=== PATIENT | male | born 1965 | race Caucasian/White ===

== ENCOUNTER → 2017-02-03 | Outpatient (CLI) | payer OTHER | LOC: M OUTALCOH 12:56 | PROVIDERS: ATTEND Psychiatry & Neurology Psychiatry | DX: F10.20 Alcohol dependence, uncomplicated (principal) ==

== ENCOUNTER 2017-02-17 14:00 | Outpatient (RCR) | payer OTHER | END 2017-02-27 | LOC: M OUTALCOH 14:00 | PROVIDERS: ATTEND Psychiatry & Neurology Psychiatry | DX: F12.10 Cannabis abuse, uncomplicated (principal); F10.20 Alcohol dependence, uncomplicated; F17.201 Nicotine dependence, unspecified, in remission ==

== ENCOUNTER → 2017-03-30 | Outpatient (RCR) | payer OTHER | LOC: M OUTALCOH 03-02 12:33 | PROVIDERS: ATTEND Psychiatry & Neurology Psychiatry | DX: F10.20 Alcohol dependence, uncomplicated (principal); F17.200 Nicotine dependence, unspecified, uncomplicated; F12.10 Cannabis abuse, uncomplicated ==

== ENCOUNTER 2017-04-27 16:00 | Outpatient (RCR) | payer OTHER | END 2017-04-29 | LOC: M OUTALCOH 16:00 | PROVIDERS: ATTEND Psychiatry & Neurology Psychiatry | DX: Z13.9 Encounter for screening, unspecified (principal); F10.20 Alcohol dependence, uncomplicated; F12.10 Cannabis abuse, uncomplicated; F17.200 Nicotine dependence, unspecified, uncomplicated ==

== ENCOUNTER 2017-05-24 16:00 | Outpatient (RCR) | payer OTHER | END 2017-05-30 | LOC: M OUTALCOH 16:00 | PROVIDERS: ATTEND Psychiatry & Neurology Psychiatry | DX: F12.10 Cannabis abuse, uncomplicated (principal); F10.20 Alcohol dependence, uncomplicated; F17.200 Nicotine dependence, unspecified, uncomplicated ==

== ENCOUNTER 2017-06-01 16:00 | Outpatient (RCR) | payer OTHER | END 2017-06-30 | LOC: M OUTALCOH 16:00 | PROVIDERS: ATTEND Psychiatry & Neurology Psychiatry | DX: F10.20 Alcohol dependence, uncomplicated (principal); F12.10 Cannabis abuse, uncomplicated; F17.200 Nicotine dependence, unspecified, uncomplicated ==

== ENCOUNTER → 2020-08-13 | Outpatient (REF) | payer OTHER ==
[2020-08-13 19:35] LABS: OSMOLALITY URINE 328 MOSM/KG (500-800)
[2020-08-13 19:45] LABS: SODIUM,RANDOM URINE 29 MEQ/L
[2020-08-13 20:04] LABS: CORTISOL BASELINE 26.2 UG/DL (4.3-22.4); FREE T4 1.12 NG/DL (0.76-1.46); THYROID STIMULATING HORMONE 1.14 uIU/ML (0.358-3.740)
== END ==
LOC: M LAB REF 17:07
PROVIDERS: ATTEND Internal Medicine Nephrology
DX: E87.1 Hypo-osmolality and hyponatremia (principal)

== ENCOUNTER → 2023-09-21 | Outpatient (CLI) | payer OTHER | LOC: M PLAIMG 10:32 | PROVIDERS: ATTEND Otolaryngology | DX: K13.21 Leukoplakia of oral mucosa, including tongue (principal) ==

== ENCOUNTER 2023-11-22 09:58 | Day surgery (SDC) | payer OTHER ==
[~2023-11-22] VITALS: Ht 177.8 cm; Wt 78.9 kg
[~2023-11-22 09:58] MED LIST: AMLO1TAB25 PO; CARV6.25 PO; FLUT12HF2; LISI40TA4 PO; LR 1,000 ML IV SCH; NICO1DIS12
[2023-11-22] MEDS ORDERED: METHYLENE BLUE 0.5% (5MG/ML) 10 ML AMP (PROVAYBLUE) As Ordered ONE (12:54)
[2023-11-22] MEDS ORDERED: LIDOCAINE W/EPINEPHRINE 1% 20ML VIAL As Ordered ONE (12:54)
[2023-11-22] MEDS ORDERED: fentaNYL 100 MCG/2 ML INJECTION As Ordered ONE (13:40)
[2023-11-22] MEDS ORDERED: ROCURONIUM BROMIDE 50MG/5ML VIAL As Ordered ONE (13:40)
[2023-11-22] MEDS ORDERED: propofoL 200 MG/20 ML VIAL As Ordered ONE (13:40)
[2023-11-22] MEDS ORDERED: ONDANSETRON 4MG 2ML VIAL As Ordered ONE (13:40)
[2023-11-22] MEDS ORDERED: dexmedeTOMIDine (4MCG/ML)200MCG/50ML BTL (PRECEDEX) As Ordered ONE (13:40)
[2023-11-22] MEDS ORDERED: ACETAMINOPHEN 1000MG 100ML IV BAG As Ordered ONE (13:40)
[2023-11-22] MEDS ORDERED: SUGAMMADEX SODIUM 500 MG/5 ML VIAL (BRIDION) As Ordered ONE (13:40)
[2023-11-22] MEDS ORDERED: LIDOCAINE 2% 100MG/5ML SDV (FOR ANES.) As Ordered ONE (13:40)
[2023-11-22] MEDS ORDERED: MIDAZOLAM INJ 2MG/2ML VIAL As Ordered ONE (13:40)
[2023-11-22] MEDS ORDERED: GLYCOPYRROLATE INJ 0.2 MG/ML 2 ML VIAL As Ordered ONE (13:46)
[2023-11-22] MEDS ORDERED: PHENYLephrine 500MCG 5ML (100MCG/ML) SYRINGE As Ordered ONE (14:21)
[2023-11-22] MEDS ORDERED: METOCLOPRAMIDE INJ 10MG/2ML VIAL IV PRN (16:30)
[2023-11-22] MEDS ORDERED: LR 1,000 ML IV SCH ×2 (16:30)
[2023-11-22] MEDS ORDERED: ONDANSETRON 4MG 2ML VIAL IV PRN ×2 (16:30)
[2023-11-22] MEDS ORDERED: oxyCODONE 5MG TAB PO PRN (16:30)
[2023-11-22] MEDS ORDERED: fentaNYL 100 MCG/2 ML INJECTION IV PRN ×2 (16:30)
[2023-11-22] MEDS: oxyCODONE 5MG TAB PO PRN ×2 (16:37→17:09)
[2023-11-22 17:00] VITALS: BP 144/96; TEMP 98.8; O2SAT 99
== END 2023-11-22 17:29 | disposition home or self-care (01) ==
LOC: M SDC 09:58
PROVIDERS: ATTEND Otolaryngology
DX: K14.8 Other diseases of tongue (principal); K13.21 Leukoplakia of oral mucosa, including tongue; G47.33 Obstructive sleep apnea (adult) (pediatric); I10 Essential (primary) hypertension; J44.9 Chronic obstructive pulmonary disease, unspecified; Z79.899 Other long term (current) drug therapy; Z79.51 Long term (current) use of inhaled steroids; F17.219 Nicotine dependence, cigarettes, with unspecified nicotine-induced disorders
CPT/HCPCS: 31536; 41599; 70260; 88305; J0131; J1100; J2250; J2371; J2405; J3010; Q9968

== ENCOUNTER 2024-07-19 08:20 | Day surgery (SDC) | payer OTHER ==
[~2024-07-19] VITALS: Ht 177.8 cm; Wt 83.2 kg
[~2024-07-19 08:20] MED LIST changes: -LR 1,000 ML IV SCH
[2024-07-19] MEDS ORDERED: LR 1,000 ML IV SCH ×2 (08:45→11:25)
[2024-07-19] MEDS ORDERED: ROCURONIUM BROMIDE 50MG/5ML VIAL As Ordered ONE (09:22)
[2024-07-19] MEDS ORDERED: ONDANSETRON 4MG 2ML VIAL As Ordered ONE (09:22)
[2024-07-19] MEDS ORDERED: LIDOCAINE 2% 100MG/5ML SDV (FOR ANES.) As Ordered ONE (09:22)
[2024-07-19] MEDS ORDERED: propofoL 200 MG/20 ML VIAL As Ordered ONE (09:22)
[2024-07-19] MEDS ORDERED: ACETAMINOPHEN 1000MG 100ML IV BAG As Ordered ONE (09:22)
[2024-07-19] MEDS ORDERED: SUGAMMADEX SODIUM 500 MG/5 ML VIAL (BRIDION) As Ordered ONE (09:22)
[2024-07-19] MEDS ORDERED: fentaNYL 100 MCG/2 ML INJECTION As Ordered ONE (09:23)
[2024-07-19] MEDS ORDERED: MIDAZOLAM INJ 2MG/2ML VIAL As Ordered ONE (09:23)
[2024-07-19] MEDS: OXYMETAZOLINE 0.05% NASAL SPRAY (AFRIN) As Ordered ONE (10:27)
[2024-07-19] MEDS: LIDOCAINE W/EPINEPHRINE 1% 20ML VIAL As Ordered ONE (11:05)
[2024-07-19] MEDS ORDERED: fentaNYL 100 MCG/2 ML INJECTION IV PRN (11:25)
[2024-07-19] MEDS ORDERED: HYDROMORPHONE HCL 0.5 MG/ 0.5 ML SYRINGE IV PRN (11:25)
[2024-07-19] MEDS ORDERED: ONDANSETRON 4MG 2ML VIAL IV PRN (11:25)
[2024-07-19] MEDS ORDERED: oxyCODONE 5MG TAB PO PRN (11:25)
[2024-07-19 12:20] VITALS: BP 131/91; TEMP 97.4; O2SAT 97
== END 2024-07-19 12:39 | disposition home or self-care (01) ==
LOC: M SDC 08:20
PROVIDERS: ATTEND Otolaryngology
DX: K13.29 Other disturbances of oral epithelium, including tongue (principal); K12.1 Other forms of stomatitis; R23.4 Changes in skin texture; Z91.013 Allergy to seafood; Z79.899 Other long term (current) drug therapy; Z87.891 Personal history of nicotine dependence
CPT/HCPCS: 41100; 41108; 88305; J0131; J1100; J2250; J2405; J3010

== ENCOUNTER → 2025-02-14 | Outpatient (CLI) | payer OTHER ==
[~2025-02-14] VITALS: Ht 180.3 cm; Wt 77.7 kg
[~2025-02-14] MED LIST changes: +BICA50TA4; +DULC5TAB PO; +HYDR-3713; +HYDR-3713 PO; +IBUP-1114; +MIRA3350 PO; +NARC1SPR NARES; +OXYC-517 PO; +SENN-186 PO
[2025-02-14 14:51] VITALS: BP 117/71; O2SAT 97
== END ==
LOC: M PAL 14:17
PROVIDERS: ATTEND Physician Assistant
DX: Z51.5 Encounter for palliative care (principal); C61 Malignant neoplasm of prostate; C79.51 Secondary malignant neoplasm of bone; C78.7 Secondary malignant neoplasm of liver and intrahepatic bile duct; R52 Pain, unspecified; Z79.891 Long term (current) use of opiate analgesic; Z72.89 Other problems related to lifestyle; Z79.899 Other long term (current) drug therapy; Z79.1 Long term (current) use of non-steroidal anti-inflammatories (NSAID); Z91.018 Allergy to other foods; Z91.013 Allergy to seafood
CPT/HCPCS: 99205; G2212

== ENCOUNTER → 2025-02-28 | Outpatient (CLI) | payer OTHER ==
[~2025-02-28] VITALS: Ht 180.3 cm; Wt 77.0 kg
[~2025-02-28] MED LIST changes: +TRAZ-252 PO
[2025-02-28 14:14] VITALS: BP 143/97; O2SAT 97
== END ==
LOC: M PAL 14:03
PROVIDERS: ATTEND Physician Assistant
DX: Z51.5 Encounter for palliative care (principal); C61 Malignant neoplasm of prostate; C79.51 Secondary malignant neoplasm of bone; C22.9 Malignant neoplasm of liver, not specified as primary or secondary; Z79.891 Long term (current) use of opiate analgesic; Z91.013 Allergy to seafood; Z79.899 Other long term (current) drug therapy

== ENCOUNTER → 2025-05-16 | Outpatient (CLI) | payer OTHER ==
[~2025-05-16] VITALS: Ht 180.3 cm; Wt 74.9 kg
[~2025-05-16] MED LIST changes: +ATIV1TAB10 PO; +ATIV1TAB7 PO; -BICA50TA4; +BICA50TA4 PO; +DARO300T PO; -IBUP-1114; +IBUP-1114 PO; +LISI40TA10 PO; -LISI40TA4 PO; +MELO15TA28 PO; +MUSHROOM PO; +ONDA-284 PO; +OXYC-1 PO; +OXYC10TA12 PO; +PROC5TAB57 PO; +TRAZ-186 PO
[2025-05-16 14:02] VITALS: BP 146/90; O2SAT 99
== END ==
LOC: M PAL 13:30
PROVIDERS: ATTEND Physician Assistant
DX: Z51.5 Encounter for palliative care (principal); C61 Malignant neoplasm of prostate; C79.51 Secondary malignant neoplasm of bone; C78.7 Secondary malignant neoplasm of liver and intrahepatic bile duct; R52 Pain, unspecified; R19.4 Change in bowel habit; Z79.1 Long term (current) use of non-steroidal anti-inflammatories (NSAID); Z79.891 Long term (current) use of opiate analgesic; Z79.899 Other long term (current) drug therapy; Z91.013 Allergy to seafood

== ENCOUNTER → 2025-06-14 | Outpatient (REF) | payer OTHER ==
[2025-06-14 18:10] LABS: BASO # 0.1 10^3/uL (0.0-0.2); BASO % 0.6 % (0.0-1.0); EOS # 1.0 10^3/uL (0.0-0.5); EOS % 12.3 % (0.0-3.0); LYMPH # 3.3 10^3/uL (1.5-5.0); LYMPH % 42.4 % (24.0-44.0); MONO # 0.8 10^3/uL (0.0-0.8); MONO % 10.8 % (2.0-8.0); NEUTROPHILS # 2.6 10^3/uL (1.5-8.5); NEUTROPHILS % 33.6 % (36.0-66.0); PLATELET COUNT, AUTOMATED 353 10^3/uL (150-450)
[2025-06-14 18:37] LABS: ALT/SGPT 28 U/L (7.0-40); AST/SGOT 27 U/L (<34); CALCIUM LEVEL 8.9 MG/DL (8.3-10.6); CARBON DIOXIDE LEVEL 32 MMOL/L (20-31); CHLORIDE LEVEL 95 MMOL/L (98-107); CREATININE FOR GFR 0.68 MG/DL (0.70-1.30); GLOMERULAR FILTRATION RATE > 90.0 (>49); POTASSIUM SERUM 4.1 MMOL/L (3.5-5.1); PROSTATIC SPECIFIC AG MONITOR 67.76 NG/ML (< 4.00); SODIUM LEVEL 136 MMOL/L (136-145)
[2025-06-14 18:41] LABS: TESTOSTERONE 8 NG/DL (241-827)
== END ==
LOC: M LABWUC 17:03
PROVIDERS: ATTEND Internal Medicine Medical Oncology
DX: C61 Malignant neoplasm of prostate (principal)

== ENCOUNTER → 2025-07-09 | Outpatient (CLI) | payer OTHER ==
[~2025-07-09] VITALS: Ht 180.3 cm; Wt 76.2 kg
[2025-07-09 13:43] VITALS: BP 138/80; O2SAT 98
== END ==
LOC: M PAL 13:30
PROVIDERS: ATTEND Physician Assistant
DX: Z51.5 Encounter for palliative care (principal); C61 Malignant neoplasm of prostate; C79.51 Secondary malignant neoplasm of bone; C78.7 Secondary malignant neoplasm of liver and intrahepatic bile duct; Z79.891 Long term (current) use of opiate analgesic; Z91.013 Allergy to seafood; Z79.899 Other long term (current) drug therapy

== ENCOUNTER → 2025-09-12 | Outpatient (CLI) | payer OTHER ==
[~2025-09-12] VITALS: Ht 177.8 cm; Wt 80.3 kg
[~2025-09-12] MED LIST changes: -PROC5TAB57 PO; +PROC5TAB81 PO
[2025-09-12 13:43] VITALS: BP 130/88; O2SAT 100
== END ==
LOC: M PAL 13:29
PROVIDERS: ATTEND Physician Assistant
DX: Z51.5 Encounter for palliative care (principal); C61 Malignant neoplasm of prostate; C79.51 Secondary malignant neoplasm of bone; C78.89 Secondary malignant neoplasm of other digestive organs; Z79.891 Long term (current) use of opiate analgesic; Z91.013 Allergy to seafood; Z79.899 Other long term (current) drug therapy